=== PATIENT | female | born 2000 | race Hispanic/Latino ===

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

== ENCOUNTER 2023-04-20 23:01 | Emergency (ER) | payer OTHER ==
[~2023-04-20] VITALS: Ht 157.5 cm; Wt 62.1 kg
[2023-04-20 23:03] VITALS: BP 109/60; PULSE 103; RESP 20
[2023-04-20] MEDS ORDERED: METOCLOPRAMIDE 10 MG/2 ML VIAL IVP ONE (23:30)
[2023-04-20] MEDS ORDERED: DiphenhydrAMINE HCL 50 MG/ML VIAL IVP ONE (23:30)
[2023-04-20] MEDS ORDERED: 0.9%NACL 1000ML 1,000 ML IV ONE (23:30)
[2023-04-20] MEDS ORDERED: KETOROLAC 30MG VIAL (30MG/ML) IVP ONE (23:30)
[2023-04-21] MEDS ORDERED: KETOROLAC 15MG/ML VIAL (15MG/ML) IV ONE
[2023-04-21] MEDS ORDERED: IBUP-2070 PO (00:04)
[2023-04-21] MEDS ORDERED: FIORIT PO (00:04)
[2023-04-21] MEDS ORDERED: PRED20TA3 PO (00:04)
== END 2023-04-21 00:55 | disposition home or self-care (01) ==
LOC: EDH 23:04
DX: G44.209 Tension-type headache, unspecified, not intractable (principal); Z79.899 Other long term (current) drug therapy
CPT/HCPCS: 99284; 96374; 96375; J1200; J7030; J2765; J1885

== ENCOUNTER 2023-05-14 19:10 | Emergency (ER) | payer OTHER ==
[~2023-05-14] VITALS: Ht 160 cm; Wt 59.0 kg
[~2023-05-14 19:10] MED LIST: FIORIT PO; IBUP-2070 PO; PRED20TA3 PO
[2023-05-14] MEDS ORDERED: IBUPROFEN 600 MG TABLET PO ONE (20:00)
[2023-05-14 20:57] LABS: BASOPHILS # (AUTO) 0.04 K/uL (0.00-0.20); BASOPHILS % (AUTO) 0.3 % (0.0-5.0); EOSINOPHILS # (AUTO) 0.09 K/uL (0.00-0.70); EOSINOPHILS % (AUTO) 0.7 % (0.0-8.0); HEMATOCRIT 40.3 % (36-48); LYMPHOCYTES # (AUTO) 3.2 K/uL (1.0-4.8); LYMPHOCYTES % (AUTO) 26.1 % (21.0-51.0); MEAN CORPUSCULAR HEMOGLOBIN 31.3 pg (27.0-33.0); MEAN CORPUSCULAR HGB CONC 33.5 g/dL (32.0-36.0); MEAN CORPUSCULAR VOLUME 93.5 fL (79-99); MONOCYTES % (AUTO) 7.9 % (3.0-13.0); NEUTROPHILS # (AUTO) 7.9 K/uL (1.8-7.7); NEUTROPHILS % (AUTO) 64.2 % (40.0-77.0); PLATELET COUNT (AUTO) 336 K/uL (130-400); RED BLOOD CELL COUNT(AUTO) 4.31 MIL/uL (4.00-5.50); RED CELL DISTRIBUTION WIDTH 12.7 % (11.0-15.5); WHITE BLOOD COUNT (AUTO) 12.3 K/uL (4.8-10.8)
[2023-05-14 21:21] LABS: CREATININE 0.7 mg/dL (0.5-1.5); POTASSIUM 3.4 mmol/L (3.5-5.1)
[2023-05-14 21:26] LABS: ALBUMIN 3.6 g/dL (3.5-5.0); BILIRUBIN,TOTAL 0.2 mg/dL (0.2-1.0); TOTAL PROTEIN, SERUM 7.7 g/dL (6.0-8.3)
[2023-05-14] MEDS ORDERED: IBUP-2070 PO (21:31)
[2023-05-14] MEDS ORDERED: AMOX1TAB16 PO (21:31)
[2023-05-14 21:55] VITALS: BP 122/82; PULSE 86; RESP 16; O2SAT 99
[2023-05-14 22:05] LABS: ERYTHROCYTE SEDIMENTATION RATE 14 MM/HR (0-20)
== END 2023-05-14 22:24 | disposition home or self-care (01) ==
LOC: EDH 19:10
DX: R59.0 Localized enlarged lymph nodes (principal); M54.2 Cervicalgia; Z79.899 Other long term (current) drug therapy
CPT/HCPCS: 36415; 76536; 80053; 83605; 85025; 85651